=== PATIENT | female | born 1960 | race Two or more races ===

== ENCOUNTER → 2018-01-06 | Outpatient (CLI) | payer OTHER ==
[~2018-01-06] MED LIST: ATOR80TA PO; EXEN2VIA SC; INSU100I15 SC; INSU100V13 SC; LISI-170 PO; METF500T4 PO
[2018-01-06 11:52] LABS: BASOPHILS # (AUTO) 0.05 x10^3/uL (0-0.1); BASOPHILS % (AUTO) 1 % (0-1); EOSINOPHILS # (AUTO) 0.12 x10^3/uL (0-0.4); EOSINOPHILS % (AUTO) 3 % (1-7); LYMPHOCYTES # (AUTO) 1.65 x10^3/uL (1-3.4); LYMPHOCYTES % (AUTO) 33 % (22-44); MD NO; MEAN CORPUSCULAR HEMOGLOBIN 31.3 pg (27.0-34.8); MEAN CORPUSCULAR HGB CONC 33.4 g/dL (32.4-35.8); MEAN CORPUSCULAR VOLUME 93.7 fL (80-100); MEAN PLATELET VOLUME 9.2 fL (7.4-10.4); MONOCYTES # (AUTO) 0.34 x10^3/uL (0.2-0.8); MONOCYTES % (AUTO) 7 % (2-9); NEUTROPHILS # (AUTO) 2.85 x10^3/uL (1.8-6.8); NEUTROPHILS % (AUTO) 57 % (42-75); PLATELET COUNT 230 x10^3/uL (130-400); RED BLOOD COUNT 4.63 x10^6/uL (3.82-5.3); RED CELL DISTRIBUTION WIDTH 14.1 % (9.6-15.2)
[2018-01-06 11:56] LABS: INTERNATIONAL NORMALIZED RATIO 0.93 (0.93-1.1); PROTHROMBIN TIME 9.6 Seconds (9.6-11.5)
[2018-01-06 12:04] LABS: ALANINE AMINOTRANSFERASE 38 U/L (12-78); ALBUMIN 3.8 g/dL (3.4-5.0); ANION GAP 7 mmol/L (5-15); CALCIUM 8.6 mg/dL (8.5-10.1); CHLORIDE 106 mmol/L (98-107); CREATININE 0.83 mg/dL (0.55-1.02)
[2018-01-06 12:06] LABS: ALKALINE PHOSPHATASE 89 U/L (45-117); BILIRUBIN,TOTAL 0.5 mg/dL (0.2-1.0); TOTAL PROTEIN 7.5 g/dL (6.4-8.2)
== END | disposition home or self-care (01) ==
LOC: STAR 10:39
PROVIDERS: ATTEND Specialist
DX: Z01.818 Encounter for other preprocedural examination (principal); R19.01 Right upper quadrant abdominal swelling, mass and lump
CPT/HCPCS: 36415; 71046; 80053; 85025; 85610; 85730; 86304; 93005

== ENCOUNTER 2018-01-13 05:36 | Inpatient (IN) | payer OTHER ==
[~2018-01-13] VITALS: Ht 175.3 cm; Wt 105.0 kg
[~2018-01-13 05:36] MED LIST changes: -METF500T4 PO; +METF500T5 PO
[2018-01-13] MEDS ORDERED: LACTATED RINGERS 1,000 ML IV SCH (06:15)
[2018-01-13 06:45] VITALS: BP 108/71
[2018-01-13] MEDS ORDERED: MIDAZOLAM 1 MG/ML, 2ML ONE (06:59)
[2018-01-13] MEDS ORDERED: FENTANYL PF 250 MCG/5ML ONE (06:59)
[2018-01-13] MEDS ORDERED: GABAPENTIN 300 MG CAPSULE PO ONE (07:00)
[2018-01-13] MEDS ORDERED: SCOPOLAMINE PATCH, 1.5MG PATCH.TD72 TD ONE (07:00)
[2018-01-13] MEDS ORDERED: ROCURONIUM 10MG/ML,5ML ONE ×2 (07:00→07:45)
[2018-01-13] MEDS ORDERED: ACETAMINOPHEN 500 MG TABLET PO ONE (07:00)
[2018-01-13] MEDS ORDERED: PROPOFOL 10 MG/ML, 20ML ONE (07:04)
[2018-01-13] MEDS ORDERED: LIDOCAINE-MPF 2% ,5ML ONE (07:04)
[2018-01-13] MEDS ORDERED: PHENYLEPHRINE 10 MG/ML ONE (07:04)
[2018-01-13] MEDS ORDERED: CEFOTETAN PMX 2GM/50ML 50 ML ONE (07:05)
[2018-01-13] MEDS ORDERED: DEXAMETHASONE 4 MG/ML, 1ML ONE ×2 (07:05)
[2018-01-13] MEDS ORDERED: BUPIVACAINE/PF 0.25% ONE ×2 (07:24)
[2018-01-13] MEDS ORDERED: EPINEPHRINE 1 MG/ML, 1ML ONE (07:24)
[2018-01-13] MEDS ORDERED: HYDROcodone/APAP 7.5-325MG/15ML UDC PO PRN (09:00)
[2018-01-13] MEDS ORDERED: hydrALAzine 20 MG/ML, 1ML IV PRN (09:00)
[2018-01-13] MEDS ORDERED: LABETALOL 5MG/ML, 20ML IV PRN (09:00)
[2018-01-13] MEDS ORDERED: LORazepam 2 MG/ML, 1ML IVPush PRN (09:00)
[2018-01-13] MEDS ORDERED: FENTANYL PF 100 MCG/2ML IV PRN (09:00)
[2018-01-13] MEDS ORDERED: HYDROmorphone 1 MG/ML, 1ML IV PRN (09:00)
[2018-01-13] MEDS ORDERED: PROMETHAZINE 25 MG/ML, 1ML IV PRN (09:00)
[2018-01-13] MEDS ORDERED: HALOPERIDOL 5 MG/ML IV PRN (09:00)
[2018-01-13] MEDS ORDERED: MEPERIDINE/PF 25MG/0.5ML IVPush PRN (09:00)
[2018-01-13] MEDS ORDERED: ONDANSETRON 2MG/ML, 2ML ONE ×2 (09:30)
[2018-01-13] MEDS ORDERED: NEOSTIGMINE 1 MG/ML, 10ML ONE (10:17)
[2018-01-13] MEDS ORDERED: FENTANYL PF 100 MCG/2ML ONE (10:19)
[2018-01-13] MEDS ORDERED: INSULIN LISPRO 100 UNITS/ML, PEN SQ-INSULIN SCH (11:00)
[2018-01-13] MEDS: KETOROLAC 30 MG/1 ML IV SCH ×2 (12:51→22:25)
[2018-01-13 13:00] VITALS: BP_SYST 100; BP_DIAS 58; BP_DIAS 61
[2018-01-13] MEDS ORDERED: BYDUREON 2 MG SC SCH (13:00)
[2018-01-13] MEDS: ENOXAPARIN 30 MG/0.3 ML SQ SCH (14:00)
[2018-01-13 14:30] VITALS: BP 100/58
[2018-01-13] MEDS: INSULIN LISPRO 100 UNITS/ML, PEN SQ-INSULIN SCH ×2 (16:45→22:31)
[2018-01-13 19:21] VITALS: BP 104/57
[2018-01-13] MEDS: ATORVASTATIN 80 MG TABLET PO SCH (21:00)
[2018-01-13] MEDS: FAMOTIDINE 20 MG/2 ML IV SCH (22:26)
[2018-01-14 00:05] VITALS: BP 98/49
[2018-01-14] MEDS: ENOXAPARIN 30 MG/0.3 ML SQ SCH ×2 (02:04→14:09)
[2018-01-14 04:22] VITALS: BP 101/65
[2018-01-14 04:58] LABS: BASOPHILS # (AUTO) 0.02 x10^3/uL (0-0.1); BASOPHILS % (AUTO) 0 % (0-1); EOSINOPHILS # (AUTO) 0.01 x10^3/uL (0-0.4); EOSINOPHILS % (AUTO) 0 % (1-7); LYMPHOCYTES # (AUTO) 1.18 x10^3/uL (1-3.4); LYMPHOCYTES % (AUTO) 15 % (22-44); MD NO; MEAN CORPUSCULAR HGB CONC 33.5 g/dL (32.4-35.8); MEAN CORPUSCULAR VOLUME 95.6 fL (80-100); MEAN PLATELET VOLUME 9.1 fL (7.4-10.4); MONOCYTES # (AUTO) 0.77 x10^3/uL (0.2-0.8); MONOCYTES % (AUTO) 10 % (2-9); NEUTROPHILS # (AUTO) 5.68 x10^3/uL (1.8-6.8); NEUTROPHILS % (AUTO) 74 % (42-75); PLATELET COUNT 194 x10^3/uL (130-400); RED BLOOD COUNT 3.59 x10^6/uL (3.82-5.3); RED CELL DISTRIBUTION WIDTH 15.1 % (9.6-15.2)
[2018-01-14 05:12] LABS: ALBUMIN 2.7 g/dL (3.4-5.0); ANION GAP 4 mmol/L (5-15); CALCIUM 7.9 mg/dL (8.5-10.1); CHLORIDE 109 mmol/L (98-107); CREATININE 0.83 mg/dL (0.55-1.02)
[2018-01-14] MEDS: KETOROLAC 30 MG/1 ML IV SCH ×3 (05:45→22:03)
[2018-01-14] MEDS: INSULIN LISPRO 100 UNITS/ML, PEN SQ-INSULIN SCH ×4 (07:00→21:00)
[2018-01-14 08:08] VITALS: BP 108/62
[2018-01-14] MEDS: LISINOPRIL 20 MG TABLET PO SCH (09:00)
[2018-01-14] MEDS: FAMOTIDINE 20 MG/2 ML IV SCH ×2 (09:38→22:02)
[2018-01-14 14:17] VITALS: BP 111/59
[2018-01-14 20:18] VITALS: BP 106/67
[2018-01-14] MEDS: ATORVASTATIN 80 MG TABLET PO SCH (21:00)
[2018-01-15] MEDS: ENOXAPARIN 30 MG/0.3 ML SQ SCH ×2 (02:10→13:58)
[2018-01-15 02:31] VITALS: BP 98/59
[2018-01-15 05:34] LABS: BASOPHILS % (AUTO) 2 % (0-1); EOSINOPHILS % (AUTO) 2 % (1-7); LYMPHOCYTES # (AUTO) 1.13 x10^3/uL (1-3.4); LYMPHOCYTES % (AUTO) 20 % (22-44); MD NO; MEAN CORPUSCULAR HEMOGLOBIN 31.7 pg (27.0-34.8); MEAN CORPUSCULAR HGB CONC 33.2 g/dL (32.4-35.8); MEAN CORPUSCULAR VOLUME 95.3 fL (80-100); MEAN PLATELET VOLUME 9.3 fL (7.4-10.4); MONOCYTES # (AUTO) 0.51 x10^3/uL (0.2-0.8); MONOCYTES % (AUTO) 9 % (2-9); NEUTROPHILS # (AUTO) 3.97 x10^3/uL (1.8-6.8); NEUTROPHILS % (AUTO) 68 % (42-75); PLATELET COUNT 152 x10^3/uL (130-400); RED BLOOD COUNT 3.16 x10^6/uL (3.82-5.3); RED CELL DISTRIBUTION WIDTH 14.1 % (9.6-15.2)
[2018-01-15] MEDS: KETOROLAC 30 MG/1 ML IV SCH ×3 (06:11→21:53)
[2018-01-15] MEDS: INSULIN LISPRO 100 UNITS/ML, PEN SQ-INSULIN SCH ×4 (07:00→21:00)
[2018-01-15 07:59] VITALS: BP 101/62
[2018-01-15] MEDS: LISINOPRIL 20 MG TABLET PO SCH ×2 (09:00→09:46)
[2018-01-15] MEDS: FAMOTIDINE 20 MG/2 ML IV SCH ×2 (09:46→21:30)
[2018-01-15 12:50] VITALS: BP 103/59
[2018-01-15 18:08] VITALS: BP 130/68
[2018-01-15] MEDS: D5%-0.45NACL+KCL 20MEQ 1,000 ML IV SCH (19:00)
[2018-01-15] MEDS ORDERED: MORPHINE SULFATE 4 MG/ML, 1ML IVPush PRN (20:00)
[2018-01-15] MEDS ORDERED: LORazepam 2 MG/ML, 1ML IVPush ONE (20:30)
[2018-01-15] MEDS ORDERED: BENZOCAINE AEROSOL SPRAY 20%, 60ML TP PRN (20:30)
[2018-01-15] MEDS: ATORVASTATIN 80 MG TABLET PO SCH ×2 (21:00→21:30)
[2018-01-15] MEDS: PHENOL THROAT SPRAY BOTTLE MM PRN (21:32)
[2018-01-16] MEDS: PHENOL THROAT SPRAY BOTTLE MM PRN (01:09)
[2018-01-16] MEDS: ENOXAPARIN 30 MG/0.3 ML SQ SCH ×2 (01:38→13:49)
[2018-01-16 02:00] VITALS: BP 110/60
[2018-01-16 05:31] LABS: ANION GAP 7 mmol/L (5-15); CALCIUM 8.1 mg/dL (8.5-10.1); CHLORIDE 110 mmol/L (98-107)
[2018-01-16 05:32] LABS: CREATININE 0.63 mg/dL (0.55-1.02)
[2018-01-16 05:37] LABS: BASOPHILS # (AUTO) 0.02 x10^3/uL (0-0.1); BASOPHILS % (AUTO) 0 % (0-1); EOSINOPHILS # (AUTO) 0.12 x10^3/uL (0-0.4); EOSINOPHILS % (AUTO) 2 % (1-7); LYMPHOCYTES # (AUTO) 0.81 x10^3/uL (1-3.4); LYMPHOCYTES % (AUTO) 15 % (22-44); MD NO; MEAN CORPUSCULAR HEMOGLOBIN 32.7 pg (27.0-34.8); MEAN CORPUSCULAR HGB CONC 34.1 g/dL (32.4-35.8); MEAN CORPUSCULAR VOLUME 96.1 fL (80-100); MEAN PLATELET VOLUME 9.2 fL (7.4-10.4); MONOCYTES # (AUTO) 0.44 x10^3/uL (0.2-0.8); MONOCYTES % (AUTO) 8 % (2-9); NEUTROPHILS # (AUTO) 3.96 x10^3/uL (1.8-6.8); NEUTROPHILS % (AUTO) 74 % (42-75); PLATELET COUNT 157 x10^3/uL (130-400); RED CELL DISTRIBUTION WIDTH 13.8 % (9.6-15.2)
[2018-01-16] MEDS: D5%-0.45NACL+KCL 20MEQ 1,000 ML IV SCH ×3 (06:00→21:43)
[2018-01-16] MEDS: KETOROLAC 30 MG/1 ML IV SCH ×3 (06:00→21:26)
[2018-01-16] MEDS: FAMOTIDINE 20 MG/2 ML IV SCH ×2 (08:04→21:26)
[2018-01-16] MEDS: INSULIN LISPRO 100 UNITS/ML, PEN SQ-INSULIN SCH ×3 (08:05→21:43)
[2018-01-16] MEDS: LISINOPRIL 20 MG TABLET PO SCH (08:05)
[2018-01-16 09:14] VITALS: BP 116/64
[2018-01-16 13:53] VITALS: BP 113/81
[2018-01-16 19:33] VITALS: BP 117/63
[2018-01-16] MEDS: ATORVASTATIN 80 MG TABLET PO SCH (21:26)
[2018-01-17 01:39] VITALS: BP 108/60
[2018-01-17] MEDS: ENOXAPARIN 30 MG/0.3 ML SQ SCH ×2 (01:48→14:49)
[2018-01-17] MEDS: D5%-0.45NACL+KCL 20MEQ 1,000 ML IV SCH ×2 (06:16→14:00)
[2018-01-17] MEDS: INSULIN LISPRO 100 UNITS/ML, PEN SQ-INSULIN SCH ×2 (06:16→11:43)
[2018-01-17] MEDS: KETOROLAC 30 MG/1 ML IV SCH ×2 (06:18→14:49)
[2018-01-17 06:55] VITALS: BP 112/72
[2018-01-17] MEDS: FAMOTIDINE 20 MG/2 ML IV SCH (08:32)
[2018-01-17] MEDS: LISINOPRIL 20 MG TABLET PO SCH (08:32)
[2018-01-17 14:02] VITALS: BP 123/64
[2018-01-17] MEDS ORDERED: OXYcodone/APAP 7.5/325MG TABLET PO PRN (14:30)
[2018-01-17] MEDS ORDERED: ONDA4TAB7 PO (16:21)
[2018-01-17] MEDS ORDERED: OXYC-306 PO (16:22)
[2018-01-17] MEDS ORDERED: FAMOTIDINE 20 MG TABLET PO SCH (21:00)
== END 2018-01-17 16:33 | disposition home or self-care (01) | DRG 742 ==
LOC: ORIP 05:36 → 4NOR 12:18 → DCLOUNGE 01-17 16:15
PROVIDERS: ADMIT Specialist; ATTEND Specialist
PROC: 0UT70ZZ Resection of Bilateral Fallopian Tubes, Open Approach (ICD-10-PCS; 2018-01-13)
PROC: 0DNU0ZZ Release Omentum, Open Approach (ICD-10-PCS; 2018-01-13)
PROC: 0DBN0ZZ Excision of Sigmoid Colon, Open Approach (ICD-10-PCS; 2018-01-13)
PROC: 0DB80ZZ Excision of Small Intestine, Open Approach (ICD-10-PCS; 2018-01-13)
PROC: 0UT20ZZ Resection of Bilateral Ovaries, Open Approach (ICD-10-PCS; principal; 2018-01-13 07:30)
DX: D27.1 Benign neoplasm of left ovary (principal); K56.7 Ileus, unspecified; N73.6 Female pelvic peritoneal adhesions (postinfective); E78.00 Pure hypercholesterolemia, unspecified; E11.9 Type 2 diabetes mellitus without complications; E66.01 Morbid (severe) obesity due to excess calories; D64.9 Anemia, unspecified; I10 Essential (primary) hypertension; Z79.84 Long term (current) use of oral hypoglycemic drugs; Z87.442 Personal history of urinary calculi; Z90.710 Acquired absence of both cervix and uterus; Z79.899 Other long term (current) drug therapy; Z80.51 Family history of malignant neoplasm of kidney; Z72.89 Other problems related to lifestyle; Z87.891 Personal history of nicotine dependence; Z68.34 Body mass index [BMI] 34.0-34.9, adult; Z88.5 Allergy status to narcotic agent; Z88.8 Allergy status to other drugs, medicaments and biological substances
CPT/HCPCS: 36415; 74018; 80048; 82040; 82962; 85025; 86850; 86900; 86923; 88305; 88307; 88329; 88331; C1729; J0171; J1100; J1650; J1885; J2250; J2270; J2405; J2704; J2710; J3010; J3490; C1765; J1815; J2370; J3480; J7120; S0028; S0074